=== PATIENT | female | born 1950 | race Two or more races ===

== ENCOUNTER 2018-05-02 11:53 | Outpatient (CLI) | payer OTHER | END 2018-05-02 11:57 | disposition home or self-care (01) | LOC: SONOGRAMA 11:53 | DX: M25.511 Pain in right shoulder (principal) ==

== ENCOUNTER 2018-05-06 08:44 | Outpatient (CLI) | payer OTHER | END 2018-05-06 09:13 | disposition home or self-care (01) | LOC: SONOGRAMA 08:44 → MAMO-SONO 08:45 → SONOGRAMA 09:13 | DX: N19 Unspecified kidney failure (principal) ==

== ENCOUNTER 2018-06-15 12:04 | Outpatient (CLI) | payer OTHER | END 2018-06-15 13:00 | disposition home or self-care (01) | LOC: NUCLEAR 12:04 | DX: N19 Unspecified kidney failure (principal); N13.9 Obstructive and reflux uropathy, unspecified | CPT/HCPCS: 78708; A9539 ==

== ENCOUNTER 2018-06-19 11:39 | Outpatient (CLI) | payer OTHER | END 2018-06-19 11:45 | disposition home or self-care (01) | LOC: RAD 11:39 | DX: R10.2 Pelvic and perineal pain (principal) ==

== ENCOUNTER 2018-12-04 09:39 | Outpatient (CLI) | payer OTHER | END 2018-12-04 09:59 | disposition home or self-care (01) | LOC: NUCLEAR 09:39 | DX: M15.0 Primary generalized (osteo)arthritis (principal); M81.0 Age-related osteoporosis without current pathological fracture ==

== ENCOUNTER 2018-12-06 08:55 | Outpatient (CLI) | payer OTHER | END 2018-12-06 08:59 | disposition home or self-care (01) | LOC: SONOGRAMA 08:55 → MAMO-SONO 09:15 | DX: M25.512 Pain in left shoulder (principal) ==

== ENCOUNTER → 2020-03-03 | Outpatient (CLI) | payer OTHER | END | disposition home or self-care (01) | LOC: RAD 10:09 | DX: M99.03 Segmental and somatic dysfunction of lumbar region (principal); M54.2 Cervicalgia; M54.5 Low back pain; M99.01 Segmental and somatic dysfunction of cervical region; M99.04 Segmental and somatic dysfunction of sacral region; M99.05 Segmental and somatic dysfunction of pelvic region; M99.02 Segmental and somatic dysfunction of thoracic region; M75.82 Other shoulder lesions, left shoulder ==

== ENCOUNTER 2021-04-03 10:08 | Outpatient (CLI) | payer OTHER | END 2021-04-03 10:13 | disposition home or self-care (01) | LOC: RAD 10:08 | DX: M99.03 Segmental and somatic dysfunction of lumbar region (principal) ==

== ENCOUNTER 2022-04-19 11:13 | Outpatient (CLI) | payer OTHER | END 2022-04-19 11:24 | disposition home or self-care (01) | LOC: RAD 11:13 | DX: M79.671 Pain in right foot (principal); M79.672 Pain in left foot ==

== ENCOUNTER 2022-06-24 09:45 | Outpatient (CLI) | payer OTHER | END 2022-06-24 09:51 | disposition home or self-care (01) | LOC: SONOGRAMA 09:45 | DX: G57.62 Lesion of plantar nerve, left lower limb (principal) ==

== ENCOUNTER 2022-10-15 08:04 | Outpatient (CLI) | payer OTHER | END 2022-10-15 08:06 | disposition home or self-care (01) | LOC: NUCLEAR 08:04 | PROVIDERS: ATTEND Internal Medicine | DX: I73.9 Peripheral vascular disease, unspecified (principal) ==

== ENCOUNTER 2023-02-08 11:23 | Outpatient (CLI) | payer OTHER | END 2023-02-08 11:37 | disposition home or self-care (01) | LOC: TOM 11:23 | PROVIDERS: ATTEND Physical Medicine & Rehabilitation | DX: M25.551 Pain in right hip (principal) ==

== ENCOUNTER 2023-04-18 11:38 | Outpatient (CLI) | payer OTHER | END 2023-04-18 11:43 | disposition home or self-care (01) | LOC: RAD 11:38 | PROVIDERS: ATTEND Internal Medicine | DX: M25.551 Pain in right hip (principal) ==

== ENCOUNTER 2023-06-28 06:28 | Inpatient (IN) | payer OTHER ==
[2023-06-21 09:46] LABS: HEMATOCRIT 33.6 % (36.0-45.00); HEMOGLOBIN 11.1 g/dL (12.0-15.00); MEAN CELL VOLUME 92.4 fL (80.00-100.00); MEAN CORPUSCULAR HEMOGLOBIN 30.6 pg (27.00-32.0); MEAN CORPUSCULAR HGB CONC 33.2 g/dl (32.0-36.0); PLATELET COUNT 398 K/uL (150-450); RED BLOOD COUNT 3.63 M/uL (4.00-6.00); RED CELL DISTRIBUTION WIDTH 16.9 % (11.5-14.5)
[2023-06-21 09:53] LABS: PH,URINE 5.5 (5.0-8.0); URINE APPEARANCE Clear; URINE BILIRRUBIN Negative (NEGATIVE); URINE BLOOD Negative; URINE COLOR Yellow; URINE GLUCOSE Negative (NEGATIVE); URINE LEUKOCYTE Trace; URINE NITRATE Negative; URINE PROTEIN Negative (NEGATIVE); URINE UROBILINOGEN 0.2 E.U./dl
[2023-06-21 09:57] LABS: URINE BACTERIA 90.6 uL (0.0-1933); URINE EPITHELIAL CELLS 6.9 uL (0.0-38.8); URINE WBC 17.2 uL (0.0-23.2)
[2023-06-21 10:01] LABS: URINE RBC 1.7 uL (0.0-20.8)
[2023-06-21 10:12] LABS: INR 0.95; PARTIAL THROMBOPLASTIN TIME 27.3 SECONDS (22.0-34.0)
[2023-06-21 10:28] LABS: ALBUMIN 3.9 gm/dL (3.4-5.0); BILIRUBIN TOTAL 0.25 mg/dL (0.3-1.2); CALCIUM 10.4 mg/dL (8.5-10.1); CREATININE SERUM 1.16 mg/dL (0.55-1.02); GFR 46.18; GLOBULINA 3.6 G/DL (2.4-3.5); POTASSIUM 5.43 mEq/L (3.5-5.1); TOTAL PROTEIN 7.5 gm/dL (6.4-8.2)
[~2023-06-28] VITALS: Ht 167.6 cm; Wt 89.8 kg
[~2023-06-28 06:28] MED LIST: EXFORGE HCT 101 EAC2 PO; GRALISE600 MG PO; LEVO-T75 MCG PO; LIPITOR40 MG PO; METFORMIN HCL500 M3 PO; PLAVIX75 MG PO; XARELTO2.5 MG PO
[2023-06-29] MEDS ORDERED: GABAPENTIN100 MG PO (08:14)
[2023-06-29] MEDS ORDERED: NORFLEX100MG PO (08:14)
[2023-06-29] MEDS ORDERED: OXYC1TAB9 PO (08:14)
== END 2023-06-29 13:21 | disposition home or self-care (01) | DRG 482 ==
LOC: CIR.AMB 06:28 → O/R 19:05 → OB/GYN 19:08
PROVIDERS: ADMIT Orthopaedic Surgery; ATTEND Orthopaedic Surgery
PROC: 3E0U3GC Introduction of Other Therapeutic Substance into Joints, Percutaneous Approach (ICD-10-PCS; 2023-06-28)
PROC: 0QU60JZ Supplement Right Upper Femur with Synthetic Substitute, Open Approach (ICD-10-PCS; 2023-06-28)
PROC: 0Q5 Lower Bones, Destruction (ICD-10-PCS; principal; 2023-06-28 10:00)
DX: M87.851 Other osteonecrosis, right femur (principal); M87.051 Idiopathic aseptic necrosis of right femur; Z20.822 Contact with and (suspected) exposure to COVID-19
CPT/HCPCS: S2325; 20902

== ENCOUNTER 2023-12-13 10:51 | Outpatient (CLI) | payer OTHER ==
[~2023-12-13 10:51] MED LIST changes: +GABAPENTIN100 MG PO; +NORFLEX100MG PO; +OXYC1TAB9 PO
== END 2023-12-13 10:53 | disposition home or self-care (01) ==
LOC: SONOGRAMA 10:51
PROVIDERS: ATTEND Obstetrics & Gynecology Gynecology
DX: N95.0 Postmenopausal bleeding (principal)

== ENCOUNTER 2024-01-18 13:49 | Outpatient (CLI) | payer OTHER | END 2024-01-18 13:53 | disposition home or self-care (01) | LOC: RAD 13:49 | PROVIDERS: ATTEND Orthopaedic Surgery | DX: M25.551 Pain in right hip (principal); M25.552 Pain in left hip; M25.561 Pain in right knee ==

== ENCOUNTER 2024-01-23 09:38 | Outpatient (CLI) | payer OTHER | END 2024-01-23 09:39 | disposition home or self-care (01) | LOC: NUCLEAR 09:38 | PROVIDERS: ATTEND Orthopaedic Surgery | DX: M25.461 Effusion, right knee (principal); M25.462 Effusion, left knee; I87.2 Venous insufficiency (chronic) (peripheral) ==

== ENCOUNTER 2024-01-24 09:05 | Outpatient (CLI) | payer OTHER | END 2024-01-24 09:08 | disposition home or self-care (01) | LOC: NUCLEAR 09:05 | PROVIDERS: ATTEND Orthopaedic Surgery | DX: M25.461 Effusion, right knee (principal); M25.462 Effusion, left knee ==

== ENCOUNTER → 2024-08-02 | Outpatient (CLI) | payer OTHER | END | disposition home or self-care (01) | LOC: SONOGRAMA 11:37 | PROVIDERS: ATTEND Specialist/Technologist, Other Nephrology | DX: R10.9 Unspecified abdominal pain (principal); N18.30 Chronic kidney disease, stage 3 unspecified; R31.9 Hematuria, unspecified ==

== ENCOUNTER 2024-11-05 11:26 | Outpatient (CLI) | payer OTHER | END 2024-11-05 11:29 | disposition home or self-care (01) | LOC: RAD 11:26 | DX: M16.11 Unilateral primary osteoarthritis, right hip (principal); M16.12 Unilateral primary osteoarthritis, left hip ==

== ENCOUNTER 2024-11-19 11:47 | Outpatient (CLI) | payer OTHER | END 2024-11-19 11:53 | disposition home or self-care (01) | LOC: RAD 11:47 | DX: I11.9 Hypertensive heart disease without heart failure (principal) ==

== ENCOUNTER 2024-12-25 12:07 | Outpatient (CLI) | payer OTHER | END 2024-12-25 12:11 | disposition home or self-care (01) | LOC: RAD 12:07 | DX: M16.11 Unilateral primary osteoarthritis, right hip (principal) ==

== ENCOUNTER 2025-05-02 11:19 | Outpatient (CLI) | payer OTHER | END 2025-05-02 11:20 | disposition home or self-care (01) | LOC: RAD 11:19 | DX: M16.11 Unilateral primary osteoarthritis, right hip (principal) ==